=== PATIENT | female | born 1995 | race American Indian/Alaskan Native ===

== ENCOUNTER 2020-04-30 04:32 | Outpatient (CLI) | payer MEDICAID ==
[2020-04-30] MEDS ORDERED: LACTATED RINGERS 1,000 ML IV ONE ×2 (05:08→07:11)
[2020-04-30] MEDS: TERBUTALINE 1 MG/1 ML INJ SUB-Q PRN ×3 (05:23→06:39)
[2020-04-30 07:47] VITALS: BP 114/63
== END 2020-04-30 08:13 | disposition home or self-care (01) ==
LOC: TRG 04:32 → APU 04:42 → TRG 08:13
PROVIDERS: ATTEND Obstetrics & Gynecology
DX: O62.9 Abnormality of forces of labor, unspecified (principal); Z3A.40 40 weeks gestation of pregnancy
CPT/HCPCS: 59025; 96360; 96361; 96372; J3105; J7120